=== PATIENT | female | born 1960 | race Caucasian/White ===

== ENCOUNTER 2019-04-26 17:18 | Emergency (ER) | payer OTHER ==
[~2019-04-26] VITALS: Ht 165.1 cm; Wt 79.4 kg
[~2019-04-26 17:18] MED LIST: ABILIFY10 MG PO; ACETAMINOPHEN325 M1 PO; ADVIL200 M3; APAP500 PO; ASPIR 8181 MG PO; ASPIRIN EC325 M1 PO; ASPIRIN81 M2 PO; AZATHIOPRINE50 MG PO; CYMBALTA60 MG PO; EFFIENT10 MG PO; FLEXERIL PO; HYDROCODONE-APA1 TA1 PO; HYDROXYCHLOROQ200 M1 PO; IBUPROFEN 600600 M1 PO; KLONOPIN1 MG PO; LIPITOR40 MG PO; NORCO 5-325 TA1 EACH PO; PRAVASTATIN SOD80 MG PO; PREDNISONE 5 MG5 M1 PO; ROBAXIN 750 MG750 M1 PO; SIMVASTATIN20 MG PO; TOPROL XL25 MG PO; ZOFRAN ODT4 MG PO
[2019-04-26 17:40] LABS: URINE BLOOD NEGATIVE (Negative); URINE CLARITY SL CLOUDY; URINE COLOR YELLOW; URINE GLUCOSE-RANDOM* NEGATIVE (Negative); URINE KETONES TRACE (Negative); URINE LEUKOCYTES TRACE (Negative); URINE NITRITE NEGATIVE (Negative); URINE PROTEIN (DIPSTICK) 2+ (Negative); URINE SPECIFIC GRAVITY >= 1.030 (1.005-1.035); URINE UROBILINOGEN 0.2 E.U./dl (0.2-1.0)
[2019-04-26 17:57] LABS: ICTOTEST (BILI CONFIRMATORY) Negative (Negative); URINE BILIRUBIN NEGATIVE (Negative)
[2019-04-26 17:59] LABS: ABSOLUTE NEUTROPHILS 2.5 thou/uL (1.4-8.2); BASOPHILS 0.2 % (0.0-2.0); EOSINOPHILS 2.7 % (0.0-3.0); HEMATOCRIT 42.7 % (37.0-47.0); HEMOGLOBIN 13.9 gm/dL (12.0-15.0); LYMPHOCYTES 45.1 % (24.0-44.0); MCH 31.3 pg (26.0-34.0); MCHC 32.6 g/dL (28.0-37.0); MCV 95.9 fL (80.0-100.0); MONOCYTES 9.1 % (1.0-8.0); PLATELET COUNT 305 thou/uL (150-400); POLYS 42.9 % (36.0-66.0); RBC 4.45 mil/uL (4.20-5.00); RDW 15.4 % (10.5-14.5); WBC 5.9 thou/uL (4.0-11.0)
[2019-04-26 18:08] LABS: CREATININE 1.2 mg/dL (0.6-1.0)
[2019-04-26 18:09] LABS: POTASSIUM 4.6 mmol/L (3.5-5.1)
[2019-04-26 18:14] LABS: ALBUMIN 4.1 g/dL (3.4-5.0); TOTAL BILIRUBIN 0.4 mg/dL (<0.1-1.0); TOTAL PROTEIN 7.9 g/dL (6.4-8.2)
[2019-04-26 18:22] LABS: BACTERIA >30 Many /HPF (None Seen); CASTS None Seen /LPF (None Seen); CRYSTALS None Seen /LPF (None Seen); SQUAMOUS 0-3 Few /LPF (0-3)
[2019-04-26 18:24] LABS: URINE WBC 0-5 Rare /HPF (0-5)
[2019-04-26 18:25] LABS: URINE RBC None Seen /HPF (0-2)
[2019-04-26] MEDS ORDERED: ZOFRAN ODT4 MG PO (21:16)
[2019-04-26] MEDS ORDERED: BENTYL 20 MG TA20 M1 PO (21:16)
[2019-04-26 21:36] VITALS: BP 124/70
--- NOTE | 2019-04-28 12:45 | EKG ---
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
== END 2019-04-26 21:37 | disposition home or self-care (01) ==
LOC: ER 17:18
PROVIDERS: Emergency Medicine
DX: R10.13 Epigastric pain (principal); R11.2 Nausea with vomiting, unspecified; M32.9 Systemic lupus erythematosus, unspecified; F17.210 Nicotine dependence, cigarettes, uncomplicated; Z90.49 Acquired absence of other specified parts of digestive tract; Z90.81 Acquired absence of spleen; Z95.5 Presence of coronary angioplasty implant and graft; Z88.2 Allergy status to sulfonamides